=== PATIENT | male | born 1995 | race Two or more races ===

== ENCOUNTER 2019-04-27 10:31 | Emergency (ER) | payer BC ==
[~2019-04-27] VITALS: Ht 175.3 cm; Wt 63.5 kg
[2019-04-27] MEDS ORDERED: SODIUM CHLORIDE 0.9% 1,000 ML IV ONE (10:38)
[2019-04-27 12:33] VITALS: BP 103/73
[2019-04-27 15:56] LABS: Basophils # (auto) 0 uL; Basophils % (auto) 0.8 % (0.0-2.0); Eosinophils # (auto) 0.1 uL; Eosinophils % (auto) 1.4 % (0.0-7.0); Hematocrit 44.9 % (41.0-53.0); Hemoglobin 15.1 g/dL (13.5-17.5); Lymphocytes # (auto) 1.9 uL; Lymphocytes % (auto) 35.5 % (10.0-50.0); Mean Corpuscular Hemoglobin 31.2 pg (28.0-32.0); Mean Corpuscular Hgb Conc. 33.7 g/dL (32.0-36.0); Mean Corpuscular Volume 92.7 fL (80.0-100.0); Monocytes # (auto) 0.4 uL; Monocytes % (auto) 7.1 % (0.0-12.0); Neutrophils % (auto) 55.2 % (37.0-80.0); Nucleated Red Blood Cells % 0.1 %; Platelet Count (auto) 212 10^3/uL (140-450); Red Blood Cells 4.85 10^6/uL (4.5-5.90); Red Cell Distribution Width 12.6 % (11.8-14.3); White Blood Cell 5.4 10^3/uL (4.4-10.8)
[2019-04-27 16:24] LABS: Albumin 4.1 g/dL (3.4-5.0); Calcium 8.9 mg/dL (8.5-10.1); Potassium 4.2 mmol/L (3.5-5.1)
[2019-04-27 16:29] LABS: BUN/Creatinine Ratio 11.6; Bilirubin, Total 0.8 mg/dL (0.2-1.0); Total Protein 7.5 g/dL (6.4-8.2)
== END 2019-04-27 17:26 | disposition home or self-care (01) ==
LOC: ER 10:31
DX: R51 Headache (principal); F12.10 Cannabis abuse, uncomplicated
CPT/HCPCS: 36415; 80053; 85025